=== PATIENT | male | born 1980 | race Caucasian/White ===

== ENCOUNTER 2017-03-02 15:38 | Emergency (ER) | payer MEDICAID | END 2017-03-02 17:25 | disposition left against medical advice (07) | LOC: JP.ED 15:38 | DX: Z53.21 Procedure and treatment not carried out due to patient leaving prior to being seen by health care provider (principal) ==

== ENCOUNTER 2017-03-08 01:37 | Emergency (ER) | payer MEDICAID ==
[2017-03-08] MEDS ORDERED: Ibuprofen 600 MG Tab PO ONE (01:59)
--- NOTE | 2017-03-08 02:03 | EDM.PDOC ---
ED HPI GENERAL MEDICAL PROBLEM - General Chief Complaint: ENT Problem Stated Complaint: RT EAR PAIN AND SORE THROAT Time Seen by Provider: 03/08/17 01:40 Source of Information: Reports: Patient History Limitations: Reports: No Limitations - History of Present Illness INITIAL COMMENTS - FREE TEXT/NARRATIVE: 36-year-old male who was had a mild cold over the past several days has developed intense pain in the right ear over the last 6-8 hours. No fevers or chills. Slight cough but no shortness of breath. No drainage of the ear, he has not been swimming. Severity: Moderate Associated Symptoms: Reports: Cough. Denies: Fever/Chills, Headaches, Nausea/ Vomiting, Shortness of Breath Right Ear Pain Score (Numeric/FACES): 8 - Related Data Allergies Allergy/AdvReac Type Severity Reaction Status Date / Time No Known Allergies Allergy Verified 03/02/17 16:17 Home Meds: Home Meds NK [No Known Home Meds] 03/02/17 [History] Past Medical History - Past Health History Medical/Surgical History: Denies Medical/Surgical History Social & Family History - Tobacco Use Smoking Status *Q: Never Smoker - Caffeine Use Caffeine Use: Reports: Coffee - Recreational Drug Use Recreational Drug Use: No ED ROS ENT - Review of Systems Review Of Systems: See Below Constitutional: Denies: Fever, Chills HEENT: Reports: Ear Pain, Throat Pain Respiratory: Reports: Cough. Denies: Shortness of Breath GI/Abdominal: Denies: Abdominal Pain, Nausea, Vomiting Skin: Reports: No Symptoms Neurological: Denies: Headache Psychiatric: Reports: No Symptoms ED EXAM, ENT - Physical Exam Exam: See Below Exam Limited By: No Limitations General Appearance: Alert, No Apparent Distress (Patient is not distressed but is fairly uncomfortable) Ears: TM Bulging, TM Erythema (Right TM has erythematous ring, is bulging and distorted), Other (Left tympanic membrane is normal) Mouth/Throat: Pharyngeal Erythema (Moderate pharyngeal erythema but no exudate) Neck: No: Lymphadenopathy (R), Lymphadenopathy (L) Respiratory/Chest: No Respiratory Distress Course - Vital Signs Last Recorded V/S: Last Vital Signs Temp 98.2 F 03/08/17 01:46 Pulse 78 03/08/17 01:46 Resp 18 03/08/17 01:46 BP 149/93 H 03/08/17 01:46 Pulse Ox 98 03/08/17 01:46 - Orders/Labs/Meds Meds: Medications Discontinued Medications Generic Name Dose Route Start Last Admin Trade Name Celio PRN Reason Stop Dose Admin Ibuprofen 600 mg 03/08/17 01:59 03/08/17 02:09 Motrin PO 03/08/17 02:00 600 mg ONETIME ONE Administration - Re-Assessments/Exams Free Text/Narrative Re-Assessment/Exam: 03/08/17 02:01 Patient likely has a viral URI that is developed a new bacterial infection in the right ear. He was given 600 mg of ibuprofen, started on amoxicillin 500 mg 3 times a day and given 6 hydrocodone for extra pain control for the first 24 hours. He'll return if worsening, or consider recheck in 3-4 days if not improving satisfactorily. Departure - Departure Time of Disposition: 02:13 Disposition: Home, Self-Care 01 Condition: Good Clinical Impression: Otitis media Qualifiers: Otitis media type: suppurative Chronicity: acute Laterality: right Recurrence: not specified as recurrent Spontaneous tympanic membrane rupture: without spontaneous rupture Qualified Code(s): H66.001 - Acute suppurative otitis media without spontaneous rupture of ear drum, right ear - Discharge Information Instructions: Otitis Media, Adult, [id number] Referrals: PCP,None [Primary Care Provider] - Forms: ED Department Discharge Care Plan Goals: Take a regular dose of ibuprofen or naproxen over the next 48 hours, add stronger pain medication as prescribed if needed. Antibiotic is 3 times a day for a minimum of 7 days. Return anytime if worsening, or consider rechecking in 3-4 days if not improving satisfactorily.
== END 2017-03-08 02:13 | disposition home or self-care (01) ==
LOC: JP.ED 01:37
DX: H66.001 Acute suppurative otitis media without spontaneous rupture of ear drum, right ear (principal)
CPT/HCPCS: 99283; A9270

== ENCOUNTER 2017-05-25 10:53 | Emergency (ER) | payer MEDICAID ==
[2017-05-25] MEDS ORDERED: Tetracaine HCl/PF 0.5% 4 ML Bottle EYELF ONE (11:18)
--- NOTE | 2017-05-25 11:31 | EDM.PDOC ---
ED HPI GENERAL MEDICAL PROBLEM - General Chief Complaint: Eye Problems Stated Complaint: SOMETHING IN LEFT EYE Time Seen by Provider: 05/25/17 11:10 Source of Information: Reports: Patient, Old Records History Limitations: Reports: No Limitations - History of Present Illness INITIAL COMMENTS - FREE TEXT/NARRATIVE: 36 yo male went to bed last night with no issues, awoke in the night with left eye pain. Has tried multiple times to flush the eye, but the pain and light sensitivity persists. Tetanus is UTD. Onset: Today Onset Date: 05/25/17 Duration: Hour(s): Location: Reports: Face (L eye) Quality: Reports: Burning Severity: Moderate Improves with: Reports: Other (light avoidance) Worsens with: Reports: Other (blinking or light exposure.) Context: Reports: Other (uncertain) Associated Symptoms: Reports: No Other Symptoms Treatments [employer]: Reports: Other (see below) (eye flush) left eye Pain Score (Numeric/FACES): 3 - Related Data Allergies Allergy/AdvReac Type Severity Reaction Status Date / Time No Known Allergies Allergy Verified 05/25/17 11:10 Home Meds: Home Meds Acetaminophen/oxyCODONE [Percocet 325-5 MG] 1 each PO Q4HR PRN #7 tab 05/25/17 [ Rx] Gabapentin [Neurontin] 300 mg PO BID 05/25/17 [History] Past Medical History - Past Health History Medical/Surgical History: Denies Medical/Surgical History Social & Family History - Tobacco Use Smoking Status *Q: Never Smoker - Caffeine Use Caffeine Use: Reports: Coffee - Alcohol Use Days Per Week of Alcohol Use: 2 Number of Drinks Per Day: 2 Total Drinks Per Week: 4 - Recreational Drug Use Recreational Drug Use: No ED ROS GENERAL - Review of Systems Review Of Systems: See Below Constitutional: Reports: No Symptoms HEENT: Reports: Eye Pain Respiratory: Reports: No Symptoms Skin: Reports: No Symptoms Neurological: Reports: No Symptoms Psychiatric: Reports: No Symptoms ED EXAM GENERAL W FULL EYE - Physical Exam Exam: See Below Exam Limited By: No Limitations General Appearance: Alert, WD/WN, No Apparent Distress Eye Exam: Left Eye: Conjunctival Injection, Bilateral Eye: PERRL Eyelids: Right: Normal Appearance, Left: Edema, Lid Everted for Exam Conjunctiva & Sclera: Right: Normal Appearance, Left: Injected Cornea Exam: Right: Normal Appearance, Left: Corneal Abrasion, Examined with Flourescein Extraocular Movements: Bilateral: Intact Pupils: Normal Accommodation Pupillary Size: Bilateral: 3 mm Ears: Normal Canal, Hearing Grossly Normal Nose: Normal Inspection, Normal Mucosa, No Blood Throat/Mouth: Normal Inspection, Normal Lips, Normal Oropharynx, Normal Voice, No Airway Compromise Head: Atraumatic, Normocephalic Psychiatric: Normal Affect, Normal Mood Skin Exam: Warm, Dry, Intact, Normal Color, No Rash Lymphatic: No Adenopathy ED EYE w/ Add Procedure - Eye Procedure Alcaine Drops Administered: Yes (Tetracaine to left eye) Progress: Flourescein staining reveals a circular abrasion to the L cornea at about 2 pm measuring about 3 x 3 mm. Course - Vital Signs Last Recorded V/S: Last Vital Signs Temp 36.6 C 05/25/17 11:13 Pulse 77 05/25/17 11:13 Resp 16 05/25/17 11:13 BP 134/84 05/25/17 11:13 Pulse Ox 95 05/25/17 11:13 - Orders/Labs/Meds Meds: Medications Discontinued Medications Generic Name Dose Route Start Last Admin Trade Name Freq PRN Reason Stop Dose Admin Tetracaine HCl 1 ml 05/25/17 11:18 Tetracaine 0.5% Steri-Unit Simran EYELF 05/25/17 11:19 ASDIRECTED ONE Departure - Departure Time of Disposition: 11:40 Disposition: Home, Self-Care 01 Condition: Good Clinical Impression: Corneal abrasion, left Qualifiers: Encounter type: initial encounter Qualified Code(s): S05.02XA - Injury of conjunctiva and corneal abrasion without foreign body, left eye, initial encounter - Discharge Information Referrals: Reyes Osei MD [Primary Care Provider] -
== END 2017-05-25 11:40 | disposition home or self-care (01) ==
LOC: JP.ED 10:53
DX: S05.02XA Injury of conjunctiva and corneal abrasion without foreign body, left eye, initial encounter (principal); X58.XXXA Exposure to other specified factors, initial encounter
CPT/HCPCS: 99283; A9270

== ENCOUNTER 2020-08-25 22:03 | Emergency (ER) | payer MEDICAID ==
--- NOTE | 2020-08-25 22:23 | EDM.PDOC ---
ED HPI GENERAL MEDICAL PROBLEM - General Chief Complaint: Trauma Stated Complaint: FELL OFF LADDER/SOB Time Seen by Provider: 08/25/20 22:11 Source of Information: Reports: Patient History Limitations: Reports: No Limitations - History of Present Illness INITIAL COMMENTS - FREE TEXT/NARRATIVE: TRAUMA CODE code called at 2009. I was in the room at 2009. Cruz is a 39-year-old male who fell off the ladder falling approximately 7 to 8 feet landing on his chest. He presents with chest pain and pleurodynia. He denies any loss of consciousness. The patient was installing a window with his on the top of an extension ladder when he lost his footing causing him to fall. The patient did injure his left hand and wrist falling off the ladder when he struck the ladder that his was on and then he landed on his left side on concrete. Again there was no loss of consciousness and the patient initially just had pain in his wrist and elbow from striking the ladder and ground. Once his adrenaline level started to drop off he started to notice he was having a little bit more difficulty getting a full breath. 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 He denies any rib pain. He denies any head or neck pain. He has mild Left Hand Pain Score (Numeric/FACES): 5 denies pain Pain Score (Numeric/FACES): 0 - Related Data Allergies Allergy/AdvReac Type Severity Reaction Status Date / Time No Known Allergies Allergy Verified 08/25/20 22:17 Home Meds: Home Meds NK [No Known Home Meds] 08/25/20 [History] Past Medical History - Past Health History Medical/Surgical History: Denies Medical/Surgical History Social & Family History - Caffeine Use Caffeine Use: Reports: Coffee Review of Systems - Review of Systems Review Of Systems: See Below Constitutional: Reports: No Symptoms Eyes: Reports: No Symptoms Ears: Reports: No Symptoms Nose: Reports: No Symptoms Mouth/Throat: Reports: No Symptoms Respiratory: Reports: Shortness of Breath Cardiovascular: Reports: No Symptoms GI/Abdominal: Reports: No Symptoms Genitourinary: Reports: No Symptoms Musculoskeletal: Reports: Joint Pain (Left hand and wrist pain), Joint Swelling (Left hand and wrist swelling) Skin: Reports: Other (Abrasions to the lateral left forearm, elbow, wrist, hand, and leg.) ED EXAM, GENERAL - Physical Exam Exam: See Below Exam Limited By: No Limitations General Appearance: Alert, Mild Distress Eye Exam: Bilateral Eye: EOMI, PERRL Nose: Normal Inspection Throat/Mouth: Normal Inspection, Normal Oropharynx, Normal Voice, No Airway Compromise Head: Atraumatic, Normocephalic Neck: Normal Inspection, Supple, Non-Tender, Full Range of Motion Respiratory/Chest: No Respiratory Distress, Lungs Clear, Normal Breath Sounds, No Accessory Muscle Use, Chest Non-Tender Cardiovascular: Normal Peripheral Pulses, Regular Rate, Rhythm, No Murmur Peripheral Pulses: 2+: Radial (L), Radial (R), Posterior Tibial (L), Posterior Tibial (R) GI/Abdominal: Normal Bowel Sounds, Soft, Non-Tender Back Exam: Normal Inspection, Full Range of Motion Extremities: Normal Inspection, Normal Range of Motion, Joint Swelling (Mild swelling on the lateral left wrist and hand) Neurological: Alert, Oriented, CN II-XII Intact, Normal Cognition, No Motor/Sensory Deficits Psychiatric: Normal Affect, Normal Mood Skin Exam: Warm, Dry, Other (Abrasions on the lateral left hand, wrist, and elbow) Lymphatic: No Adenopathy Course - Vital Signs Last Recorded V/S: Last Vital Signs Temp 36.2 C 08/25/20 23:57 Pulse 92 08/25/20 23:57 Resp 15 08/25/20 23:57 BP 135/82 08/25/20 23:57 Pulse Ox 92 L 08/25/20 23:57 - Orders/Labs/Meds Orders: Active Orders 24 hr Category Date Time Status Chest Abdomen Pelvis w Cont [CT] Stat Exams 08/25/20 22:35 Taken Hand Comp Min 3V Lt [CR] Stat Exams 08/25/20 22:35 Taken Wrist Comp Min 3V Lt [CR] Stat Exams 08/25/20 22:35 Taken Iopamidol [Isovue-300 (61%)] Med 08/25/20 22:44 Active 100 ml IV . DIRECTED PRN Sodium Chloride 0.9% [Normal Saline] 100 ml Med 08/25/20 22:45 Active IV ASDIRECTED Sodium Chloride 0.9% [Saline Flush] Med 08/25/20 22:35 Active 10 ml FLUSH ASDIRECTED PRN Saline Lock Insert [OM.PC] Routine Oth 08/25/20 22:35 Ordered Medication Orders Sodium Chloride (Normal Saline) 100 mls @ 3 mls/sec IV ASDIRECTED DEMAR Last Admin: 08/25/20 23:07 Dose: 3 mls/sec Documented by: RONA Iopamidol (Iopamidol 612 Mg/Ml 100 Ml Bottle) 100 ml IV . DIRECTED PRN PRN Reason: RADIOLOGY EXAM Stop: 08/26/20 22:45 Last Admin: 08/25/20 23:07 Dose: 100 ml Documented by: RONA Sodium Chloride (Sodium Chloride 0.9% 10 Ml Syringe) 10 ml FLUSH ASDIRECTED PRN PRN Reason: Keep Vein Open Last Admin: 08/25/20 23:07 Dose: 10 ml Documented by: RONA Meds: Medications Generic Name Dose Route Start Last Admin Trade Name Freq PRN Reason Stop Dose Admin Sodium Chloride 100 mls @ 3 mls/sec 08/25/20 22:45 08/25/20 23:07 Normal Saline IV 3 mls/sec ASDIRECTED DEMAR Administration Iopamidol 100 ml 08/25/20 22:44 08/25/20 23:07 Iopamidol 612 Mg/Ml 100 Ml Bottle IV 08/26/20 22:45 100 ml . DIRECTED PRN Administration RADIOLOGY EXAM Sodium Chloride 10 ml 08/25/20 22:35 08/25/20 23:07 Sodium Chloride 0.9% 10 Ml Syringe FLUSH 10 ml ASDIRECTED PRN Administration Keep Vein Open Discontinued Medications Generic Name Dose Route Start Last Admin Trade Name Freq PRN Reason Stop Dose Admin Sodium Chloride 10 ml 08/25/20 22:44 08/25/20 23:48 Sodium Chloride 0.9% 10 Ml Sdv FLUSH 08/25/20 22:45 10 ml ONETIME ONE Administration - Radiology Interpretation Free Text/Narrative:: I reviewed the x-rays of the left hand and wrist. There is no evidence for acute fracture. I reviewed the CT of the chest abdomen pelvis with contrast. There is no apparent abnormalities. This was confirmed by report from [facility]. - Re-Assessments/Exams Free Text/Narrative Re-Assessment/Exam: 08/26/20 00:42 I reviewed all the x-rays and find no acute abnormalities. The patient did suffer significant soft tissue injury consisting of contusion of the chest wall, left wrist and left hand. He also suffered abrasions of the left elbow, wrist, and hand. We discussed general care for this. At this time patient is suitable for discharge in satisfactory condition. Departure - Departure Time of Disposition: 00:37 Disposition: Home, Self-Care 01 Clinical Impression: Contusion of left wrist, initial encounter, Contusion of left hand, initial encounter, Abrasion of left elbow, initial encounter, Abrasion of left wrist, initial encounter Fall Qualifiers: Encounter type: initial encounter Qualified Code(s): W19.XXXA - Unspecified fall, initial encounter Chest wall contusion Qualifiers: Encounter type: initial encounter Laterality: left Qualified Code(s): S20.212A - Contusion of left front wall of thorax, initial encounter - Discharge Information Instructions: Contusion, [id number], Hand Contusion, [id number], Rib Contusion, Blunt Chest Trauma, Abrasion, [id number] Referrals: PCP,None [Primary Care Provider] - Forms: ED Department Discharge Care Plan Goals: Your work-up today fortunately has not shown any significant fractures. I recommend Tylenol or ibuprofen for the body aches. You will probably want to rest for a day or 2 to recover. Your pain will be more sore later today as the muscle start to tense up. Sepsis Event Note (ED) - Focused Exam Vital Signs: Vital Signs Temp Pulse Resp BP Pulse Ox 08/25/20 23:57 36.2 C 92 15 135/82 92 L 08/25/20 23:47 37.2 C 103 H 18 161/93 H 96 08/25/20 22:24 37.2 C 103 H 18 161/93 H 96 - Problem List & Annotations (1) Abrasion of left elbow, initial encounter SNOMED Code(s): 73516856891108831 Code(s): S50.312A - ABRASION OF LEFT ELBOW, INITIAL ENCOUNTER Status: Acute Priority: Medium Current Visit: Yes (2) Abrasion of left wrist, initial encounter SNOMED Code(s): 43208597370891526 Code(s): S60.812A - ABRASION OF LEFT WRIST, INITIAL ENCOUNTER Status: Acute Priority: Medium Current Visit: Yes (3) Chest wall contusion SNOMED Code(s): 76287092 Code(s): S20.219A - CONTUSION OF UNSPECIFIED FRONT WALL OF THORAX, INIT ENCNTR Status: Acute Priority: Medium Current Visit: Yes Qualifiers: Encounter type: initial encounter Laterality: left Qualified Code(s): S20.212A - Contusion of left front wall of thorax, initial encounter (4) Contusion of left hand, initial encounter SNOMED Code(s): 6350984 Code(s): S60.222A - CONTUSION OF LEFT HAND, INITIAL ENCOUNTER Status: Acute Priority: Medium Current Visit: Yes (5) Contusion of left wrist, initial encounter SNOMED Code(s): 78569435040085004 Code(s): S60.212A - CONTUSION OF LEFT WRIST, INITIAL ENCOUNTER Status: Acute Priority: Medium Current Visit: Yes (6) Fall SNOMED Code(s): 3447018, 869865727 Code(s): W19.XXXA - UNSPECIFIED FALL, INITIAL ENCOUNTER Status: Acute Priority: High Current Visit: Yes Qualifiers: Encounter type: initial encounter Qualified Code(s): W19.XXXA - Unspecified fall, initial encounter - Problem List Review Problem List Initiated/Reviewed/Updated: Yes - My Orders Last 24 Hours: My Active Orders 08/25/20 22:35 Chest Abdomen Pelvis w Cont [CT] Stat Hand Comp Min 3V Lt [CR] Stat Wrist Comp Min 3V Lt [CR] Stat Sodium Chloride 0.9% [Saline Flush] 10 ml FLUSH ASDIRECTED PRN Saline Lock Insert [OM.PC] Routine 08/25/20 22:44 Iopamidol [Isovue-300 (61%)] 100 ml IV . DIRECTED PRN 08/25/20 22:45 Sodium Chloride 0.9% [Normal Saline] 100 ml IV ASDIRECTED - Assessment/Plan Last 24 Hours: My Active Orders 08/25/20 22:35 Chest Abdomen Pelvis w Cont [CT] Stat Hand Comp Min 3V Lt [CR] Stat Wrist Comp Min 3V Lt [CR] Stat Sodium Chloride 0.9% [Saline Flush] 10 ml FLUSH ASDIRECTED PRN Saline Lock Insert [OM.PC] Routine 08/25/20 22:44 Iopamidol [Isovue-300 (61%)] 100 ml IV . DIRECTED PRN 06/11/21 22:45 Sodium Chloride 0.9% [Normal Saline] 100 ml IV ASDIRECTED
[2020-08-25] MEDS ORDERED: Sodium Chloride 0.9% 10 ML Syringe FLUSH PRN (22:35)
[2020-08-25] MEDS ORDERED: Sodium Chloride 0.9% 10 ML SDV FLUSH ONE (22:44)
[2020-08-25] MEDS ORDERED: Iopamidol 612 MG/ML 100 ML Bottle IV PRN (22:44)
[2020-08-25] MEDS ORDERED: Sodium Chloride 0.9% 100 ML IV SCH (22:45)
--- NOTE | 2020-08-26 00:40 | CRLCT ---
For Patients: As a result of the 21st Century Cures Act, medical imaging exams and procedure reports are released immediately into your electronic medical record. You may view this report before your referring provider. If you have questions, please contact your health care provider. INDICATION: Trauma, fell off ladder 8 feet landing on concrete TECHNIQUE: Contrast enhanced axial CT imaging through the chest, abdomen, and pelvis. 100 mL Isovue-300 contrast agent was administered intravenously. Sagittal and coronal reconstructions are provided. COMPARISON: None FINDINGS: Chest: There is no displaced rib fracture or chest wall hematoma. There is no pleural effusion, pneumothorax, or pulmonary contusion. The heart is nonenlarged. There is no pericardial effusion. There is normal caliber of the main pulmonary artery and thoracic aorta. There is no mediastinal hematoma. There is no evidence of acute thoracic vertebral fracture. Abdomen/pelvis: No abnormalities are demonstrated relating to the liver, gallbladder, spleen, pancreas, adrenal glands, and kidneys. A small renal cortical cyst is noted on the left. The portal vein is patent. The abdominal aorta is normal in caliber. There is no abdominal or pelvic lymphadenopathy. The urinary bladder is unremarkable. The stomach and duodenum are unremarkable. There is no small bowel wall thickening or abnormal distention. The appendix is noninflamed. There is no colonic wall thickening, mesenteric edema, or intraperitoneal free fluid. There is no evidence of acute displaced pelvic or lumbar spine fracture. IMPRESSION: No acute traumatic findings demonstrated in the chest, abdomen, and pelvis. Please note that all CT scans at this facility use dose modulation, iterative reconstruction, and/or weight-based dosing when appropriate to reduce radiation dose to as low as reasonably achievable. Dictated by Josué Ramsay MD @ 08/26/2020 12:30:[address] Josué Ramsay @ [facility] 2020 12:30AM
--- NOTE | 2020-08-28 09:28 | CR ---
Hand Comp Min 3V Lt, Wrist Comp Min 3V Lt CLINICAL HISTORY: Fall FINDINGS: There is no acute fracture or dislocation of the hand. Impression: Negative Hand Comp Min 3V Lt, Wrist Comp Min 3V Lt CLINICAL HISTORY: Fall FINDINGS: There is no acute fracture or dislocation within the left wrist. Impression: Negative
== END 2020-08-26 01:02 | disposition home or self-care (01) ==
LOC: JP.ED 22:03
DX: S20.212A Contusion of left front wall of thorax, initial encounter (principal); S60.212A Contusion of left wrist, initial encounter; S50.312A Abrasion of left elbow, initial encounter; W11.XXXA Fall on and from ladder, initial encounter
CPT/HCPCS: 71260; 73110; 73130; 74177; 99284; Q9967